=== PATIENT | female | born 1950 | race Caucasian/White ===

== ENCOUNTER 2021-02-03 12:21 | Inpatient (IN) ==
[2021-02-03 12:54] LABS: Basophils # (auto) 0.03 K/uL (0-0.2); Basophils % (auto) 0.4 %; Eosinophils # (auto) 0.03 K/uL (0-0.5); Eosinophils % (auto) 0.4 %; Hematocrit (blood only) 37.1 % (37-47); Hemoglobin 13.1 g/dL (12.0-16.0); Immature Granulocytes # (auto) 0.01 K/uL (0.00-0.02); Immature Granulocytes % (auto) 0.1 %; Lymphocytes # (auto) 1.64 K/uL (1.2-3.4); Lymphocytes % (auto) 20.6 %; Mean Corpuscular Hemoglobin 30.3 pg (25-34); Mean Corpuscular Hgb Conc 35.3 g/dL (32-36); Mean Corpuscular Volume 85.9 fL (80-100); Mean Platelet Volume 10.4 fL (7.4-10.4); Monocytes # (auto) 0.74 K/uL (0.11-0.59); Monocytes % (auto) 9.3 %; Neutrophils # (auto) 5.51 K/uL (1.4-6.5); Neutrophils % (auto) 69.2 %; Platelet Count 327 K/uL (130-400); RDW Standard Deviation 52.9 fL (36.4-46.3); Red Blood Count 4.32 M/uL (4.2-5.4); White Blood Count 7.96 K/uL (4.8-10.8)
[2021-02-03 13:08] LABS: INR 1.5 (0.9-1.1); Partial Thromboplastin Ratio 1.3; Prothrombin Time 14.7 Seconds (9.0-12.0)
--- NOTE | 2021-02-03 13:22 | XRay Report ---
XR chest 1V portable HISTORY: 71 years-old Female Chest Pain acute atypical chest pain COMPARISON: None TECHNIQUE: Portable AP view of the chest FINDINGS: Cardiomediastinal and hilar silhouettes are within normal limits. No pneumothorax, pleural effusion, airspace consolidation or overt pulmonary edema. Mild asymmetric interstitial opacities of the latera l left midlung and left lung base. Bones appear grossly intact. IMPRESSION: Subtle interstitial opacities of the lateral left midlung and left lung base suggest atel ectasis versus summation density. A mild nonspecific pneumonitis is considered less likely. ACT 112: Negative or not required by law. The above report was generated using voice recognition software. It may contain grammatical, syntax o r spelling errors. Electronically signed by: Maged Joaquin M.D. 02/03/2021 1:21 PM
[2021-02-03 13:40] LABS: Alanine Aminotransferase 92 U/L (12-78); Albumin Level 2.9 gm/dl (3.4-5.0); Alkaline Phosphatase 252 U/L (45-117); Aspartate Aminotransferase 97 U/L (15-37); Bilirubin,Total 32.6 mg/dl (0.2-1); Blood Urea Nitrogen 17 mg/dl (7-18); Calcium 9.5 mg/dl (8.5-10.1); Carbon Dioxide 19 mmol/L (21-32); Chloride 100 mmol/L (98-107); Creatine Kinase 117 U/L (26-192); Glucose 77 mg/dl (70-99); Lipase 98 U/L (73-393); Phosphorus 2.9 mg/dl (2.5-4.9); Potassium 3.7 mmol/L (3.5-5.1); Sodium 133 mmol/L (136-145); Thyroid Stimulating Hormone 0.422 uIu/ml (0.300-4.500); Troponin I < 0.015 ng/ml (0-0.045)
[2021-02-03 13:48] LABS: Bilirubin Direct 27.4 mg/dl (0-0.2)
[2021-02-03 14:39] LABS: Procalcitonin 0.28 ng/ml (0-0.5)
[2021-02-03 14:45] LABS: Lyme Ab IgM w/WB Rflx Negative (Negative)
[2021-02-03 14:48] LABS: Lyme Ab IgG w/WB Rflx Positive (Negative)
[2021-02-03] MEDS ORDERED: OPTIRAY 320 125ml IV ONE (15:04)
--- NOTE | 2021-02-03 15:19 | CT Scan Report ---
CT angio chest PE protocol CT DOSE: 562.21 mGy.cm HISTORY: 71 years-old Female with sob, painless jaundice PE. Acute shortness of breath with jaundic e TECHNIQUE: Multiple CTA images of the chest were obtained after the intravenous administration of 120 ml Optiray. Coronal and sagittal MIPS were obtained from the axial data set and were submitted for review. All measurements were obtained according to NASCET criteria. A dose lowering technique was u tilized adhering to the principles of ALARA. COMPARISON: CT abdomen and pelvis of same day FINDINGS: CTA: The heart is upper limits of normal in size. No pericardial effusion. No thoracic aortic aneurysm or dissection. Patency of the imaged great vessels. Descending thoracic aortic tortuosity. The pulmonary arterial tree is opacified to the level of the segmental branches and demonstrates no filling defect s to suggest thromboembolic disease. CT CHEST: Unremarkable thyroid. No adenopathy. There is no pneumothorax, pleural effusion, airspace consolidati on or overt pulmonary edema. Subsegmental bibasilar atelectasis. There are no suspicious pulmonary no dules or masses. Minimal mucus plugging of the right lung apex. Central airways are patent. Partially imaged intrahepatic biliary ductal dilation. No pneumoperitoneum. Unremarkable soft tissues . No acute fracture or suspicious bone lesion. Degenerative changes of the shoulders and spine. IMPRESSION: 1. No acute intrathoracic abnormality. No pulmonary emboli. 2. Please refer to the CT abdomen and pelvis study of same day for discussion of the biliary ductal d ilation. ACT 112: Negative or not required by law. The above report was generated using voice recognition software. It may contain grammatical, syntax o r spelling errors. Electronically signed by: Maged Joaquin M.D. 02/03/2021 3:18 PM
--- NOTE | 2021-02-03 15:25 | CT Scan Report ---
CT SCAN OF THE ABDOMEN AND PELVIS WITH IV CONTRAST CLINICAL HISTORY: Painless jaundice. COMPARISON STUDY: No priors. TECHNIQUE: Following the IV administration of 120 cc of Optiray 320, CT scan of the abdomen and pelv is is performed from the lung bases to the proximal femora. Images are reviewed in the axial, sagitta l, and coronal planes. IV contrast was administered without complication. A dose lowering technique w as utilized adhering to the principles of ALARA. FINDINGS: Lung bases: The heart is normal in size and without pericardial effusion. The lung bases are clear no ting bibasilar scarring/atelectasis. Liver: The contrast-enhanced liver is normal in size, contour, and attenuation. Hepatic and portal ve ins are patent. There is moderate to severe intrahepatic biliary ductal dilatation. There is focal cu toff of the dilated bile ducts at the hepatic hilum with the suggestion of an infiltrative mass lesio n at the hilum on image #92. This measures approximately 2.5 cm. A portion of this likely involves th e extrahepatic bile ducts as seen on image #99. Gallbladder: The gallbladder is distended but otherwise normal in appearance. The common bile duct is normal in caliber. Spleen: Normal in size and attenuation. Pancreas: Moderately atrophic and grossly unremarkable. The pancreatic duct is normal in caliber. Adrenal glands: Unremarkable. Kidneys: The contrast enhanced kidneys demonstrate cortical atrophy and are without hydronephrosis. T he kidneys enhance symmetrically. A 1.4 cm cyst is noted in the interpolar right kidney. Abdominal vasculature: The abdominal aorta is normal in course and caliber. Bowel: There is mild fecal retention seen throughout the colon. No bowel obstruction is identified. T he appendix is well-visualized and normal. Peritoneum: There is no intraperitoneal free air or abdominal ascites. There is a small fat-containin g umbilical hernia. Lymphadenopathy: None. Pelvic viscera: The bladder, uterus, and adnexa are normal as visualized. Skeletal structures: The skeletal structures are osteopenic. There is mild lumbosacral spondylosis. N o lytic or blastic lesions are seen. IMPRESSION: 1. There is moderate to severe intrahepatic biliary ductal dilatation with the suggestion of a subtle infiltrative underlying and obstructing mass lesion at the hepatic hilum. This may also involve the extrahepatic bile ducts. 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 GI follow-up is r ecommended. 2. The gallbladder is significantly distended but otherwise normal in appearance. This suggests concu rrent obstruction of the cystic duct. 3. The common bile duct in the pancreatic duct are normal in caliber. 4. There is no evidence of distant metastatic disease throughout the abdomen or pelvis. 5. Additional findings as above. ACT 112: Negative or not required by law. Electronically signed by: Sd Elam M.D. 02/03/2021 3:24 PM
[2021-02-03 15:38] LABS: Appearance Urine Clear (Clear); Bacteria Urine Automated Negative (Negative); Blood Urine Negative (Negative); Color Urine Dark Yellow; Glucose Urine UA Negative (Negative); Ketones Urine 1+ (Negative); Leukocyte Esterase Urine 1+ (Negative); Nitrite Urine Negative (Negative); Protein Urine Negative (Negative); Specific Gravity Urine 1.021 (1.000-1.030); Urobilinogen Urine Negative (Negative)
[2021-02-03 15:47] LABS: Bilirubin Urine 3+ (Negative)
--- NOTE | 2021-02-03 15:56 | Emergency Department Note ---
Impression & Plan Painless jaundice, Gallbladder mass, Borderline results on serologic testing for Lyme disease ED Provider Note NAME: PERCY YEH AGE: 71 SEX: F ARRIVES VIA: Walk-In INFORMANT: Patient, ED PROVIDER(S): Beau Joshi MD CHIEF COMPLAINT: palpitations, jaundice. PLAN: Disposition: Admit MEDICAL DECISION MAKING: The patient is a pleasant 71-year-old woman who denies any past medical history or active medical problems who presents to the emergency department for evaluation of palpitations and evolving jaundice over the past 2 weeks which reports she first noted when she was in [place] on vacation with her family but did not seek medical attention because she did not want to ruin her vacation but finally was convinced by family to come to emergency department for evaluation. She has any fevers, chills, nausea, vomiting, cough, congestion, abdominal pain, diarrhea or constipation, urinary symptoms. On arrival patient is fatigued appearing but no acute distress, afebrile, HR 100s and otherwise stable vital signs. She has severe jaundice and scleral icterus. Her abdomen is benign. WBC, H/H and platelets within normal limits. INR is elevated at 1.5. Chemistry with bicarb of 19 and anion gap of 14 however lactate 1.1, within normal limits. Electrolytes without significant abnormality. LFTs are significantly elevated with total bilirubin 32.6 and direct bilirubin 27.4 with AST and ALT 97 and 92, respectively. Alk phos is 252. CPK within normal limits. Troponin negative/undetectable. Lipase within normal limits. Procalcitonin is not elevated. TSH within normal limits. UA without convincing evidence of infection. Lyme screen was positive which is of unclear significance though the patient does report she has cats that they have found ticks on before. Will defer decision for treatment to admitting team. 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 Case was discussed with GI on-call TABATHA Hoffman with Dr. Becki Jiménez GI on-call. Upon her evaluation at the bedside they agreed to take the patient to the endoscopy suite today for ERCP and likely stenting. Case was discussed with Jessy Vicente with Jessy Abel hospitalist. Patient agrees with plan for admission. Triage Nursing notes reviewed and agree them. Prior medical records reviewed Vital Signs: reviewed and remarkable for tachycardia. Differential diagnosis: Premature contractions, electrolyte abnormality, cardiac dysrhythmia, thyroid dysfunction, pulmonary embolism, infection, gastrointestinal, as well as other pathologies. ER treatment provided: See below. Diagnostics interpreted by me: ECG: Sinus tachycardia, 102 bpm, no ectopy, no overt ST elevation or depr ession, QTC 432, QRS 82. Cardiac Monitoring: An order for continuous cardiac monitoring was placed and demonstrated sinus tachycardia, 102 bpm, no ectopy. Laboratory studies: See below Imaging studies: See below Consultations: GI on-call TABATHA Carrington with Dr. Connell. Jessy Vicente with Dr. Kuo, Jessy hospitalist. HPI: The patient is a pleasant 71-year-old woman who denies any past medical history or active medical problems who presents to the emergency department for evaluation of palpitations and evolving jaundice over the past 2 weeks which reports she first noted when she was in [place] on vacation with her family but did not seek medical attention because she did not want to ruin her vacation but finally was convinced by family to come to emergency department for evaluation. She has any fevers, chills, nausea, vomiting, cough, congestion, abdominal pain, diarrhea or constipation, urinary symptoms. ROS: See above HPI for pertinent positives & negatives. A total of 10 systems reviewed and were otherwise negative. PAST MEDICAL HISTORY:See Below PAST SURGICAL HISTORY:See Below FAMILY HISTORY:See Below SOCIAL HISTORY:See Below HOME MEDICATIONS:See Below ALLERGIES:See Below VITALS:See Below PHYSICAL EXAMINATION: GENERAL: Awake, alert, fatigued-appearing, in no distress HENT: Normocephalic, atraumatic. Oropharynx with dry mucous membranes and otherwise unremarkable. EYES: Normal conjunctiva. Sclera severely icteric. NECK: Supple. No nuchal rigidity. FROM. No JVD. RESPIRATORY: Clear to auscultation. CARDIAC: Tachycardic rate, normal rhythm. Extremities warm and well perfused. Pulses equal. ABDOMEN: Soft, non-distended. No tenderness to palpation. No rebound or guarding. No masses. RECTAL: Deferred. MUSCULOSKELETAL: Chest examination reveals no tenderness. The back is s ymmetrical on inspection without obvious abnormality. There is no CVA tenderness to palpation. No joint edema. LOWER EXTREMITIES: Calves are equal size bilaterally and non-tender. No edema. No discoloration. NEURO: Normal sensorium. No sensory or motor deficits noted. SKIN: Severe jaundice noted. ED COURSE: Critical Care: I have personally spent greater than 35 minutes of critical care time in the direct management of this patient. This includes bedside care, interpretation of diagnostic studies, and testing, discussion with consultants, patient, and family members, and other required patient management activities. This 35 minutes is in excess of all separately billable procedures. Beau Joshi MD Past Med/Surg History Medical History Borderline results on serologic testing for Lyme disease No pertinent past medical history Painless jaundice Surgical History No pertinent past surgical history Family History Father Cancer Mother Cancer Social History Smoking Status: Never smoker Do You Dip or Chew Tobacco: No; Hx Alcohol Use: No Hx Substance Use: No Preferred Language: Urdu Communication Ability: Effective Classification Clerk Required: No Beliefs That Will Affect Care: None Current Living Situation: Spouse Other Information That Helps Us Care for You: No Feels Safe at Home: Yes Safety Concerns: Feels Safe At This Time Assistive Devices: None Allergies Allergies Allergy/AdvReac Type Severity Reaction Status Date / Time No Known Allergies Allergy Verified 02/03/21 16:43 Home Meds Home Medications Medication Instructions Recorded Confirmed No Known Home Medications 02/03/21 02/03/21 Results & Data (ED) Vital Signs Vital Signs - 24 hr 02/03/21 12:27 02/03/21 12:40 02/03/21 12:50 Temperature 37.0 C Temperature Source Oral Pulse Rate 99 H Pulse Rate from SpO2 Sensor 100 H Respiratory Rate 15 Respiratory Effort / Characteristics Non-Labored Non-Labored Spontaneous Normal for Patient Respiratory Depth Normal Normal Respiratory Pattern Regular Blood Pressure 172/119 H Blood Pressure Mean 136 Pulse Oximetry 97 98 97 Oxygen Delivery Method Room Air Room Air Room Air Sepsis Recent Fever Within 48 Hours No Sepsis New/Unexplained Change in Mental Status N/A Sepsis Action Taken by Nursing No Action Required 02/03/21 13:11 02/03/21 13:30 02/03/21 14:00 Temperature Temperature Source Pulse Rate 88 90 90 Pulse Rate from SpO2 Sensor 88 90 90 Respiratory Rate 16 17 17 Respiratory Effort / Characteristics Respiratory Depth Respiratory Pattern Blood Pressure 153/78 H 153/79 H 143/79 H Blood Pressure Mean 103 103 100 Pulse Oximetry 98 96 96 Oxygen Delivery Method Sepsis Recent Fever Within 48 Hours Sepsis New/Unexplained Change in Mental Status Sepsis Action Taken by Nursing 02/03/21 14:30 02/03/21 15:12 02/03/21 15:30 Temperature Temperature Source Pulse Rate 79 88 80 Pulse Rate from SpO2 Sensor 81 87 81 Respiratory Rate 16 23 21 Respiratory Effort / Characteristics Respiratory Depth Respiratory Pattern Blood Pressure 152/72 H Blood Pressure Mean 98 Pulse Oximetry 96 97 97 Oxygen Delivery Method Sepsis Recent Fever Within 48 Hours Sepsis New/Unexplained Change in Mental Status Sepsis Action Taken by Nursing 02/03/21 16:00 02/03/21 16:30 02/03/21 17:00 Temperature Temperature Source Pulse Rate 84 87 87 Pulse Rate from SpO2 Sensor 81 89 89 Respiratory Rate 21 16 16 Respiratory Effort / Characteristics Respiratory Depth Respiratory Pattern Blood Pressure 148/73 H 159/84 H 159/84 H Blood Pressure Mean 98 109 109 Pulse Oximetry 97 96 96 Oxygen Delivery Method Sepsis Recent Fever Within 48 Hours Sepsis New/Unexplained Change in Mental Status Sepsis Action Taken by Nursing 02/03/21 17:30 Temperature 37 C Temperature Source Oral Pulse Rate 87 Pulse Rate from SpO2 Sensor Respiratory Rate 16 Respiratory Effort / Characteristics Respiratory Depth Respiratory Pattern Blood Pressure 159/84 H Blood Pressure Mean Pulse Oximetry 96 Oxygen Delivery Method Room Air Sepsis Recent Fever Within 48 Hours Sepsis New/Unexplained Change in Mental Status Sepsis Action Taken by Nursing Laboratory Data Attestation: I reviewed the patient's lab results. Result diagrams: 02/03/21 12:45 02/03/21 12:45 Lab Results 02/03/21 02/03/21 02/03/21 Range/Units 12:45 12:45 12:45 WBC 7.96 (4.8-10.8) K/uL RBC 4.32 (4.2-5.4) M/uL Hgb 13.1 (12.0-16.0) g/dL POC Hgb (12.0-16.0) g/dl Hct 37.1 (37-47) % POC Hct (37-47) % MCV 85.9 (80-100) fL MCH 30.3 (25-34) pg MCHC 35.3 (32-36) g/dL RDW Std Deviation 52.9 H (36.4-46.3) fL RDW Coeff of Miles 17.0 H (11.5-14.5) % Plt Count 327 (130-400) K/uL MPV 10.4 (7.4-10.4) fL Immature Gran % (Auto) 0.1 % Neut % (Auto) 69.2 % Lymph % (Auto) 20.6 % [place] % (Auto) 9.3 % Eos % (Auto) 0.4 % Baso % (Auto) 0.4 % Neut # (Auto) 5.51 (1.4-6.5) K/uL Lymph # (Auto) 1.64 (1.2-3.4) K/uL [place] # (Auto) 0.74 H (0.11-0.59) K/uL Eos # (Auto) 0.03 (0-0.5) K/uL Baso # (Auto) 0.03 (0-0.2) K/uL Immature Gran # (Auto) 0.01 (0.00-0.02) K/uL PT 14.7 H (9.0-12.0) Seconds INR 1.5 H (0.9-1.1) APTT 33.0 H (21.0-31.0) Seconds PTT Ratio 1.3 POC Sodium (135-144) mmol/L Sodium 133 L (136-145) mmol/L POC Potassium (3.3-5.0) mmol/L Potassium 3.7 (3.5-5.1) mmol/L POC Chloride (101-112) mmol/L Chloride 100 (98-107) mmol/L Carbon Dioxide 19 L (21-32) mmol/L POC Total CO2 (24-31) mmol/L Anion Gap 14.0 H (3-11) POC Anion Gap (16-25) mmol/L POC BUN (7-18) mg/dl BUN 17 (7-18) mg/dl Creatinine (0.6-1.2) mg/dl POC Creatinine (0.6-1.3) mg/dl Est Cr Clr Drug Dosing ml/min Est GFR ( Amer) Not Reportable Est GFR (Non-Af Amer) Not Reportable BUN/Creatinine Ratio Not Reportable Glucose 77 (70-99) mg/dl POC Glucose (other) (70-99) mg/dl Lactate (0.4-2.0) mmol/L Calcium 9.5 (8.5-10.1) mg/dl POC Ioniz Calcium Su (1.12-1.32) mmol/l Phosphorus 2.9 (2.5-4.9) mg/dl Magnesium 2.0 (1.8-2.4) mg/dl Total Bilirubin 32.6 H (0.2-1) mg/dl Direct Bilirubin 27.4 H (0-0.2) mg/dl AST 97 H (15-37) U/L ALT 92 H (12-78) U/L Alkaline Phosphatase 252 H (45-117) U/L Ammonia (11-32) umol/L Total Creatine Kinase 117 (26-192) U/L Troponin I < 0.015 (0-0.045) ng/ml Total Protein (6.4-8.2) gm/dl Albumin 2.9 L (3.4-5.0) gm/dl Globulin (2.5-4.0) gm/dl Albumin/Globulin Ratio (0.9-2) Lipase 98 (73-393) U/L Procalcitonin (0-0.5) ng/ml TSH 0.422 (0.300-4.500) uIu/ml Urine Color Urine Appearance (Clear) Urine pH (4.5-7.5) Ur Specific [place] (1.000-1.030) Urine Protein (Negative) Urine Glucose (UA) (Negative) Urine Ketones (Negative) Urine Blood (Negative) Urine Nitrite (Negative) Urine Bilirubin (Negative) Urine Urobilinogen (Negative) Ur Leukocyte Esterase (Negative) Urine WBC (Auto) (0-5) /hpf Urine RBC (Auto) (0-4) /hpf U Hyaline Cast (Auto) (0-5) /lpf U Epithel Cells (Auto) (0-5) /lpf Urine Bacteria (Auto) (Negative) Granular Casts (0) /lpf Urine Yeast Ethyl Alcohol mg/dL (0-3) mg/dl Anaplasma Smear Lyme Disease IgG Ab (Negative) Lyme Disease IgM Ab (Negative) COVID-19 Eval Order SARS-CoV-2 (PCR) (Negative) Hep Bs Antigen (Neg) Hepatitis C Antibody (Neg) 02/03/21 02/03/21 02/03/21 Range/Units 12:45 12:45 12:56 WBC (4.8-10.8) K/uL RBC (4.2-5.4) M/uL Hgb (12.0-16.0) g/dL POC Hgb (12.0-16.0) g/dl Hct (37-47) % POC Hct (37-47) % MCV (80-100) fL MCH (25-34) pg MCHC (32-36) g/dL RDW Std Deviation (36.4-46.3) fL RDW Coeff of Miles (11.5-14.5) % Plt Count (130-400) K/uL MPV (7.4-10.4) fL Immature Gran % (Auto) % Neut % (Auto) % Lymph % (Auto) % [place] % (Auto) % Eos % (Auto) % Baso % (Auto) % Neut # (Auto) (1.4-6.5) K/uL Lymph # (Auto) (1.2-3.4) K/uL [place] # (Auto) (0.11-0.59) K/uL Eos # (Auto) (0-0.5) K/uL Baso # (Auto) (0-0.2) K/uL Immature Gran # (Auto) (0.00-0.02) K/uL PT (9.0-12.0) Seconds INR (0.9-1.1) APTT (21.0-31.0) Seconds PTT Ratio POC Sodium (135-144) mmol/L Sodium (136-145) mmol/L POC Potassium (3.3-5.0) mmol/L Potassium (3.5-5.1) mmol/L POC Chloride (101-112) mmol/L Chloride (98-107) mmol/L Carbon Dioxide (21-32) mmol/L POC Total CO2 (24-31) mmol/L Anion Gap (3-11) POC Anion Gap (16-25) mmol/L POC BUN (7-18) mg/dl BUN (7-18) mg/dl Creatinine (0.6-1.2) mg/dl POC Creatinine (0.6-1.3) mg/dl Est Cr Clr Drug Dosing ml/min Est GFR ( Amer) Est GFR (Non-Af Amer) BUN/Creatinine Ratio Glucose (70-99) mg/dl POC Glucose (other) (70-99) mg/dl Lactate (0.4-2.0) mmol/L Calcium (8.5-10.1) mg/dl POC Ioniz Calcium Su (1.12-1.32) mmol/l Phosphorus (2.5-4.9) mg/dl Magnesium (1.8-2.4) mg/dl Total Bilirubin (0.2-1) mg/dl Direct Bilirubin (0-0.2) mg/dl AST (15-37) U/L ALT (12-78) U/L Alkaline Phosphatase (45-117) U/L Ammonia < 10.0 L (11-32) umol/L Total Creatine Kinase (26-192) U/L Troponin I (0-0.045) ng/ml Total Protein (6.4-8.2) gm/dl Albumin (3.4-5.0) gm/dl Globulin (2.5-4.0) gm/dl Albumin/Globulin Ratio (0.9-2) Lipase (73-393) U/L Procalcitonin (0-0.5) ng/ml TSH (0.300-4.500) uIu/ml Urine Color Urine Appearance (Clear) Urine pH (4.5-7.5) Ur Specific [place] (1.000-1.030) Urine Protein (Negative) Urine Glucose (UA) (Negative) Urine Ketones (Negative) Urine Blood (Negative) Urine Nitrite (Negative) Urine Bilirubin (Negative) Urine Urobilinogen (Negative) Ur Leukocyte Esterase (Negative) Urine WBC (Auto) (0-5) /hpf Urine RBC (Auto) (0-4) /hpf U Hyaline Cast (Auto) (0-5) /lpf U Epithel Cells (Auto) (0-5) /lpf Urine Bacteria (Auto) (Negative) Granular Casts (0) /lpf Urine Yeast Ethyl Alcohol mg/dL < 3.0 (0-3) mg/dl Anaplasma Smear Lyme Disease IgG Ab (Negative) Lyme Disease IgM Ab (Negative) COVID-19 Eval Order SARS-CoV-2 (PCR) (Negative) Hep Bs Antigen (Neg) Hepatitis C Antibody (Neg) 02/03/21 02/03/21 02/03/21 Range/Units 13:01 13:58 13:59 WBC (4.8-10.8) K/uL RBC (4.2-5.4) M/uL Hgb (12.0-16.0) g/dL POC Hgb (12.0-16.0) g/dl Hct (37-47) % POC Hct (37-47) % MCV (80-100) fL MCH (25-34) pg MCHC (32-36) g/dL RDW Std Deviation (36.4-46.3) fL RDW Coeff of Miles (11.5-14.5) % Plt Count (130-400) K/uL MPV (7.4-10.4) fL Immature Gran % (Auto) % Neut % (Auto) % Lymph % (Auto) % [place] % (Auto) % Eos % (Auto) % Baso % (Auto) % Neut # (Auto) (1.4-6.5) K/uL Lymph # (Auto) (1.2-3.4) K/uL [place] # (Auto) (0.11-0.59) K/uL Eos # (Auto) (0-0.5) K/uL Baso # (Auto) (0-0.2) K/uL Immature Gran # (Auto) (0.00-0.02) K/uL PT (9.0-12.0) Seconds INR (0.9-1.1) APTT (21.0-31.0) Seconds PTT Ratio POC Sodium (135-144) mmol/L Sodium (136-145) mmol/L POC Potassium (3.3-5.0) mmol/L Potassium (3.5-5.1) mmol/L POC Chloride (101-112) mmol/L Chloride (98-107) mmol/L Carbon Dioxide (21-32) mmol/L POC Total CO2 (24-31) mmol/L Anion Gap (3-11) POC Anion Gap (16-25) mmol/L POC BUN (7-18) mg/dl BUN (7-18) mg/dl Creatinine (0.6-1.2) mg/dl POC Creatinine (0.6-1.3) mg/dl Est Cr Clr Drug Dosing ml/min Est GFR ( Amer) Est GFR (Non-Af Amer) BUN/Creatinine Ratio Glucose (70-99) mg/dl POC Glucose (other) (70-99) mg/dl Lactate 1.1 (0.4-2.0) mmol/L Calcium (8.5-10.1) mg/dl POC Ioniz Calcium Su (1.12-1.32) mmol/l Phosphorus (2.5-4.9) mg/dl Magnesium (1.8-2.4) mg/dl Total Bilirubin (0.2-1) mg/dl Direct Bilirubin (0-0.2) mg/dl AST (15-37) U/L ALT (12-78) U/L Alkaline Phosphatase (45-117) U/L Ammonia (11-32) umol/L Total Creatine Kinase (26-192) U/L Troponin I (0-0.045) ng/ml Total Protein (6.4-8.2) gm/dl Albumin (3.4-5.0) gm/dl Globulin (2.5-4.0) gm/dl Albumin/Globulin Ratio (0.9-2) Lipase (73-393) U/L Procalcitonin 0.28 (0-0.5) ng/ml TSH (0.300-4.500) uIu/ml Urine Color Urine Appearance (Clear) Urine pH (4.5-7.5) Ur Specific [place] (1.000-1.030) Urine Protein (Negative) Urine Glucose (UA) (Negative) Urine Ketones (Negative) Urine Blood (Negative) Urine Nitrite (Negative) Urine Bilirubin (Negative) Urine Urobilinogen (Negative) Ur Leukocyte Esterase (Negative) Urine WBC (Auto) (0-5) /hpf Urine RBC (Auto) (0-4) /hpf U Hyaline Cast (Auto) (0-5) /lpf U Epithel Cells (Auto) (0-5) /lpf Urine Bacteria (Auto) (Negative) Granular Casts (0) /lpf Urine Yeast Ethyl Alcohol mg/dL (0-3) mg/dl Anaplasma Smear See Comment Lyme Disease IgG Ab Positive A (Negative) Lyme Disease IgM Ab Negative (Negative) COVID-19 Eval Order SARS-CoV-2 (PCR) (Negative) Hep Bs Antigen (Neg) Hepatitis C Antibody (Neg) 02/03/21 02/03/21 02/03/21 Range/Units 14:30 15:12 16:24 WBC (4.8-10.8) K/uL RBC (4.2-5.4) M/uL Hgb (12.0-16.0) g/dL POC Hgb 13.3 (12.0-16.0) g/dl Hct (37-47) % POC Hct 39 (37-47) % MCV (80-100) fL MCH (25-34) pg MCHC (32-36) g/dL RDW Std Deviation (36.4-46.3) fL RDW Coeff of Miles (11.5-14.5) % Plt Count (130-400) K/uL MPV (7.4-10.4) fL Immature Gran % (Auto) % Neut % (Auto) % Lymph % (Auto) % [place] % (Auto) % Eos % (Auto) % Baso % (Auto) % Neut # (Auto) (1.4-6.5) K/uL Lymph # (Auto) (1.2-3.4) K/uL [place] # (Auto) (0.11-0.59) K/uL Eos # (Auto) (0-0.5) K/uL Baso # (Auto) (0-0.2) K/uL Immature Gran # (Auto) (0.00-0.02) K/uL PT (9.0-12.0) Seconds INR (0.9-1.1) APTT (21.0-31.0) Seconds PTT Ratio POC Sodium 135 (135-144) mmol/L Sodium (136-145) mmol/L POC Potassium 4.4 (3.3-5.0) mmol/L Potassium (3.5-5.1) mmol/L POC Chloride 102 (101-112) mmol/L Chloride (98-107) mmol/L Carbon Dioxide (21-32) mmol/L POC Total CO2 21 L (24-31) mmol/L Anion Gap (3-11) POC Anion Gap 17.0 (16-25) mmol/L POC BUN 20 H (7-18) mg/dl BUN (7-18) mg/dl Creatinine (0.6-1.2) mg/dl POC Creatinine 0.8 (0.6-1.3) mg/dl Est Cr Clr Drug Dosing ml/min Est GFR ( Amer) Est GFR (Non-Af Amer) BUN/Creatinine Ratio Glucose (70-99) mg/dl POC Glucose (other) 71 (70-99) mg/dl Lactate (0.4-2.0) mmol/L Calcium (8.5-10.1) mg/dl POC Ioniz Calcium Su 1.05 L (1.12-1.32) mmol/l Phosphorus (2.5-4.9) mg/dl Magnesium (1.8-2.4) mg/dl Total Bilirubin (0.2-1) mg/dl Direct Bilirubin (0-0.2) mg/dl AST (15-37) U/L ALT (12-78) U/L Alkaline Phosphatase (45-117) U/L Ammonia (11-32) umol/L Total Creatine Kinase (26-192) U/L Troponin I (0-0.045) ng/ml Total Protein (6.4-8.2) gm/dl Albumin (3.4-5.0) gm/dl Globulin (2.5-4.0) gm/dl Albumin/Globulin Ratio (0.9-2) Lipase (73-393) U/L Procalcitonin (0-0.5) ng/ml TSH (0.300-4.500) uIu/ml Urine Color Dark Yellow Urine Appearance Clear (Clear) Urine pH 6.0 (4.5-7.5) Ur Specific [place] 1.021 (1.000-1.030) Urine Protein Negative (Negative) Urine Glucose (UA) Negative (Negative) Urine Ketones 1+ H (Negative) Urine Blood Negative (Negative) Urine Nitrite Negative (Negative) Urine Bilirubin 3+ H (Negative) Urine Urobilinogen Negative (Negative) Ur Leukocyte Esterase 1+ H (Negative) Urine WBC (Auto) 5-10 H (0-5) /hpf Urine RBC (Auto) 5-10 H (0-4) /hpf U Hyaline Cast (Auto) 5-10 H (0-5) /lpf U Epithel Cells (Auto) 10-20 H (0-5) /lpf Urine Bacteria (Auto) Negative (Negative) Granular Casts 1-5 H (0) /lpf Urine Yeast Not Reportable Ethyl Alcohol mg/dL (0-3) mg/dl Anaplasma Smear Lyme Disease IgG Ab (Negative) Lyme Disease IgM Ab (Negative) COVID-19 Eval Order Covid19 at [facility] SARS-CoV-2 (PCR) (Negative) Hep Bs Antigen (Neg) Hepatitis C Antibody (Neg) 02/03/21 Range/Units 16:24 WBC (4.8-10.8) K/uL RBC (4.2-5.4) M/uL Hgb (12.0-16.0) g/dL POC Hgb (12.0-16.0) g/dl Hct (37-47) % POC Hct (37-47) % MCV (80-100) fL MCH (25-34) pg MCHC (32-36) g/dL RDW Std Deviation (36.4-46.3) fL RDW Coeff of Miles (11.5-14.5) % Plt Count (130-400) K/uL MPV (7.4-10.4) fL Immature Gran % (Auto) % Neut % (Auto) % Lymph % (Auto) % [place] % (Auto) % Eos % (Auto) % Baso % (Auto) % Neut # (Auto) (1.4-6.5) K/uL Lymph # (Auto) (1.2-3.4) K/uL [place] # (Auto) (0.11-0.59) K/uL Eos # (Auto) (0-0.5) K/uL Baso # (Auto) (0-0.2) K/uL Immature Gran # (Auto) (0.00-0.02) K/uL PT (9.0-12.0) Seconds INR (0.9-1.1) APTT (21.0-31.0) Seconds PTT Ratio POC Sodium (135-144) mmol/L Sodium (136-145) mmol/L POC Potassium (3.3-5.0) mmol/L Potassium (3.5-5.1) mmol/L POC Chloride (101-112) mmol/L Chloride (98-107) mmol/L Carbon Dioxide (21-32) mmol/L POC Total CO2 (24-31) mmol/L Anion Gap (3-11) POC Anion Gap (16-25) mmol/L POC BUN (7-18) mg/dl BUN (7-18) mg/dl Creatinine (0.6-1.2) mg/dl POC Creatinine (0.6-1.3) mg/dl Est Cr Clr Drug Dosing ml/min Est GFR ( Amer) Est GFR (Non-Af Amer) BUN/Creatinine Ratio Glucose (70-99) mg/dl POC Glucose (other) (70-99) mg/dl Lactate (0.4-2.0) mmol/L Calcium (8.5-10.1) mg/dl POC Ioniz Calcium Su (1.12-1.32) mmol/l Phosphorus (2.5-4.9) mg/dl Magnesium (1.8-2.4) mg/dl Total Bilirubin (0.2-1) mg/dl Direct Bilirubin (0-0.2) mg/dl AST (15-37) U/L ALT (12-78) U/L Alkaline Phosphatase (45-117) U/L Ammonia (11-32) umol/L Total Creatine Kinase (26-192) U/L Troponin I (0-0.045) ng/ml Total Protein (6.4-8.2) gm/dl Albumin (3.4-5.0) gm/dl Globulin (2.5-4.0) gm/dl Albumin/Globulin Ratio (0.9-2) Lipase (73-393) U/L Procalcitonin (0-0.5) ng/ml TSH (0.300-4.500) uIu/ml Urine Color Urine Appearance (Clear) Urine pH (4.5-7.5) Ur Specific [place] (1.000-1.030) Urine Protein (Negative) Urine Glucose (UA) (Negative) Urine Ketones (Negative) Urine Blood (Negative) Urine Nitrite (Negative) Urine Bilirubin (Negative) Urine Urobilinogen (Negative) Ur Leukocyte Esterase (Negative) Urine WBC (Auto) (0-5) /hpf Urine RBC (Auto) (0-4) /hpf U Hyaline Cast (Auto) (0-5) /lpf U Epithel Cells (Auto) (0-5) /lpf Urine Bacteria (Auto) (Negative) Granular Casts (0) /lpf Urine Yeast Ethyl Alcohol mg/dL (0-3) mg/dl Anaplasma Smear Lyme Disease IgG Ab (Negative) Lyme Disease IgM Ab (Negative) COVID-19 Eval Order SARS-CoV-2 (PCR) NEGATIVE (Negative) Hep Bs Antigen (Neg) Hepatitis C Antibody (Neg) Administered Medications Lactated Ringer's (Lr) 1,000 mls @ 100 mls/hr IV .Q10H ONE Stop: 02/04/21 08:49 Last Admin: 02/03/21 23:19 Dose: 100 mls/hr Documented by: [id number] Discontinued Medications Lactated Ringer's (Lr) 1,000 mls @ 100 mls/hr IV .Q10H DARRELL Stop: 03/05/21 20:44 Last Infusion: 02/03/21 23:17 Dose: 0 mls/hr Documented by: [id number] Admin: 02/03/21 20:57 Dose: 100 mls/hr Documented by: [id number] Piperacillin Sod/Tazobactam (Sod 3.375 gm/ Dextrose) 115 mls @ 230 mls/hr IV NOW ONE; Protocol Stop: 02/03/21 21:29 Last Infusion: 02/03/21 22:36 Dose: 0 mls/hr Documented by: [id number] Admin: 02/03/21 22:00 Dose: 230 mls/hr Documented by: [id number] Indomethacin (Indomethacin 50 Mg Supp) 100 mg [place] ONE ONE Stop: 02/03/21 16:23 Last Admin: 02/03/21 19:30 Dose: 100 mg Documented by: [id number] Ioversol (Optiray 320 125ml) 120 ml IV ONCE ONE Stop: 02/03/21 15:05 Last Admin: 02/03/21 15:04 Dose: 120 ml Documented by: [id number] Imaging Data Radiologist's Impression: Chest X-Ray 02/03/21 12:36 XR chest 1V portable HISTORY: 71 years-old Female Chest Pain acute atypical chest pain COMPARISON: None TECHNIQUE: Portable AP view of the chest FINDINGS: Cardiomediastinal and hilar silhouettes are within normal limits. No pneumothorax, pleural effusion, airspace consolidation or overt pulmonary edema. Mild asymmetric interstitial opacities of the lateral left midlung and left lung base. Bones appear grossly intact. IMPRESSION: Subtle interstitial opacities of the lateral left midlung and left lung base suggest atelectasis versus summation density. A mild nonspecific pneumonitis is considered less likely. ACT 112: Negative or not required by law. The above report was generated using voice recognition software. It may contain grammatical, syntax or spelling errors. Electronically signed by: Maged Joaquin M.D. 02/03/2021 1:21 PM Abdomen/Pelvis CT 02/03/21 13:34 CT SCAN OF THE ABDOMEN AND PELVIS WITH IV CONTRAST CLINICAL HISTORY: Painless jaundice. COMPARISON STUDY: No priors. TECHNIQUE: Following the IV administration of 120 cc of Optiray 320, CT scan of the abdomen and pelvis is performed from the lung bases to the proximal femora. Images are reviewed in the axial, sagittal, and coronal planes. IV contrast was administered without complication. A dose lowering technique was utilized adhering to the principles of ALARA. FINDINGS: Lung bases: The heart is normal in size and without pericardial effusion. The lung bases are clear noting bibasilar scarring/atelectasis. Liver: The contrast-enhanced liver is normal in size, contour, and attenuation. Hepatic and portal veins are patent. There is moderate to severe intrahepatic biliary ductal dilatation. There is focal cutoff of the dilated bile ducts at the hepatic hilum with the suggestion of an infiltrative mass lesion at the hilum on image #92. This measures approximately 2.5 cm. A portion of this likely involves the extrahepatic bile ducts as seen on image #99. Gallbladder: The gallbladder is distended but otherwise normal in appearance. The common bile duct is normal in caliber. Spleen: Normal in size and attenuation. Pancreas: Moderately atrophic and grossly unremarkable. The pancreatic duct is normal in caliber. Adrenal glands: Unremarkable. Kidneys: The contrast enhanced kidneys demonstrate cortical atrophy and are without hydronephrosis. The kidneys enhance symmetrically. A 1.4 cm cyst is noted in the interpolar right kidney. Abdominal vasculature: The abdominal aorta is normal in course and caliber. Bowel: There is mild fecal retention seen throughout the colon. No bowel obstruction is identified. The appendix is well-visualized and normal. Peritoneum: There is no intraperitoneal free air or abdominal ascites. There is a small fat-containing umbilical hernia. Lymphadenopathy: None. Pelvic viscera: The bladder, uterus, and adnexa are normal as visualized. Skeletal structures: The skeletal structures are osteopenic. There is mild lumbosacral spondylosis. No lytic or blastic lesions are seen. IMPRESSION: 1. There is moderate to severe intrahepatic biliary ductal dilatation with the suggestion of a subtle infiltrative underlying and obstructing mass lesion at the hepatic hilum. This may also involve the extrahepatic bile ducts. 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 GI follow-up is recommended. 2. The gallbladder is significantly distended but otherwise normal in appeara nce. This suggests concurrent obstruction of the cystic duct. 3. The common bile duct in the pancreatic duct are normal in caliber. 4. There is no evidence of distant metastatic disease throughout the abdomen or pelvis. 5. Additional findings as above. ACT 112: Negative or not required by law. Electronically signed by: Sd Elam M.D. 02/03/2021 3:24 PM Chest CTA 02/03/21 13:35 CT angio chest PE protocol CT DOSE: 562.21 mGy.cm HISTORY: 71 years-old Female with sob, painless jaundice PE. Acute shortness of breath with jaundice TECHNIQUE: Multiple CTA images of the chest were obtained after the intravenous administration of 120 ml Optiray. Coronal and sagittal MIPS were obtained from the axial data set and were submitted for review. All measurements were obtained according to NASCET criteria. A dose lowering technique was utilized adhering to the principles of ALARA. COMPARISON: CT abdomen and pelvis of same day FINDINGS: CTA: The heart is upper limits of normal in size. No pericardial effusion. No thoracic aortic aneurysm or dissection. Patency of the imaged great vessels. Descending thoracic aortic tortuosity. The pulmonary arterial tree is opacified to the level of the segmental branches and demonstrates no filling defects to suggest thromboembolic disease. CT CHEST: Unremarkable thyroid. No adenopathy. There is no pneumothorax, pleural effusion, airspace consolidation or overt pulmonary edema. Subsegmental bibasilar atelectasis. There are no suspicious pulmonary nodules or masses. Minimal mucus plugging of the right lung apex. Central airways are patent. Partially imaged intrahepatic biliary ductal dilation. No pneumoperitoneum. Unremarkable soft tissues. No acute fracture or suspicious bone lesion. Degenerative changes of the shoulders and spine. IMPRESSION: 1. No acute intrathoracic abnormality. No pulmonary emboli. 2. Please refer to the CT abdomen and pelvis study of same day for discussion of the biliary ductal dilation. ACT 112: Negative or not required by law. The above report was generated using voice recognition software. It may contain grammatical, syntax or spelling errors. Electronically signed by: Maged Joaquin M.D. 02/03/2021 3:18 PM Endo Retro Cholangiopancreatogram 02/03/21 16:22 [place] ERCP biliary ductal CLINICAL HISTORY: ERCP with stent placement. COMPARISON STUDY: Abdomen and pelvis CT 02/03/2021. FLUOROSCOPY TIME: 9 minutes and 35 seconds. FINDINGS: 19 fluoroscopic spot images of the right upper quadrant were submitted. The ampulla was cannulated and contrast was injected into the common bile duct. A balloon sweep was performed. There is a tight stricture at the bi furcation of the intrahepatic bile ducts. This is followed by placement of a bile duct stent. IMPRESSION: Fluoroscopy provided for ERCP as described above. ACT 112: Negative or not required by law. Electronically signed by: Domenico Ricardo M.D. 02/03/2021 8:09 PM Discharge Plan Visit Data Chief Complaint: Arrhythmia/Palpitations Stated Complaint: HEART PALPITATIONS ED Provider: Beau Joshi Discharge Problem: Painless jaundice, Gallbladder mass, Borderline results on serologic testing for Lyme disease Patient Disposition: Admitted As Inpatient Discharge Instructions Interventions: ED Discharge Assessment Last Done: 02/03/21 17:30
[2021-02-03] MEDS ORDERED: INDOMETHACIN 50 MG SUPP PR ONE (16:22)
--- NOTE | 2021-02-03 16:33 | Gastrointestinal Consultation ---
Date of Consultation February 03, 2021 Assessment & Plan (1) Painless jaundice: Pt is a 71 y/o female w painless jaundice for few weeks, anorexia, elevated LFTs particularly bilirubin; CT abd/pelvis showed moderate to severe intra/extrahepatic biliary ductal dilatation with the suggestion of a subtle infiltrative underlying and obstructing mass lesion at the hepatic hilum,suggestive of a cholangiocarcinoma. - Keep NPO - ERCP in OR by Dr. Connell today; will eventually need EUS for staging - IVF support - Further recs after ERCP completed Supervising Physician Co-Signing Physician Notes I performed a history and physical examination of the patient today, including specifically on physical exam - soft abdomen. I have discussed the patient's management with the advanced practitioner. Please refer to the nurse practitioner's note for the documented findings and plan of care. 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 Patient was explained in detail regarding risks, benefits, limitations and alternatives of the above endoscopic procedure. Risks of intravenous sedation used for procedure were also explained. Risks include, but not limited to perforation, bleeding, infection, respiratory distress, cardiac arrest and . Patient is also aware about the possibility of missed lesion. Patient's questions were answered. The patient verbalized understanding the information and agreed to undergo the procedure. History of Present Illness Reason for Consultation: Painless jaundice Requesting Physician: Dr. Beau Joshi Attending Physician: Dr. Roger Connell History of Present Illness Pt is a 71 y/o female who presented to ED w c/o jaundice x 2 weeks. She denies any fever, chills, CP, SOB, abd pain, n/v. She is having poor appetite in the l ast few weeks w some weight loss. Stools pale, urine dark. She denies sick contact. On eval, noted to have markedly elevated LFTs: Tbili 32, AST/ALT 97/92, Alk phos 252. No leukocytosis, H/H stable, INR 1.5. CT abd/pelvis w contrast: showed moderate to severe intrahepatic biliary ductal dilatation with the suggestion of a subtle infiltrative underlying and obstructing mass lesion at the hepatic hilum. This may also involve the extrahepatic bile ducts. 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 The gallbladder is significantly distended but otherwise normal in appearance. This suggests concurrent obstruction of the cystic duct. The common bile duct in the pancreatic duct are normal in caliber. There is no evidence of distant metastatic disease throughout the abdomen or pelvis. No ETOH, tobacco, illicit drugs, med including OTC supplements. Both parents w hx of cancer but she is unsure of what type. Allergies Allergy/AdvReac Type Severity Reaction Status Date / Time No Known Allergies Allergy Verified 02/03/21 16:43 Home Medications Medication Instructions Recorded Confirmed Type No Known Home Medications 02/03/21 02/03/21 History Patient History Medical History (Updated 02/03/21 @ 17:00 by TABATHA Vicente) No pertinent past medical history Surgical History (Updated 02/03/21 @ 17:00 by TABATHA Vicente) No pertinent past surgical history Family History (Updated 02/03/21 @ 16:59 by TABATHA Vicente) Father Cancer Mother Cancer Social History Smoking Status: Never smoker Feels Safe at Home: Yes Review of Systems Review of Systems: All systems reviewed & are unremarkable except as noted in HPI & below Physical Exam Constitutional: WD/WN, vitals as above well groomed, cooperative and comfortable Eyes: EOMs intact, icteric sclera ENMT: external ear and nose normal, oropharynx normal Respiratory: normal respiratory effort, lungs clear to auscultation Cardiovascular: RRR, no murmur, no edema Gastrointestinal (Abdomen): normal bowel sounds, soft, nontender, no hepatosplenomegaly Skin: no rashes, warm and dry + jaundice Psychiatric: A+Ox3, euthymic affect Lymphatic: no lymphedema Results & Data ([facility]) Vital Signs (Past 12 Hours) Vital Signs Temp Pulse Resp BP Pulse Ox 02/03/21 16:00 84 21 148/73 H 97 02/03/21 15:30 80 21 97 02/03/21 15:12 88 23 97 02/03/21 14:30 79 16 152/72 H 96 02/03/21 14:00 90 17 143/79 H 96 02/03/21 13:30 90 17 153/79 H 96 02/03/21 13:11 88 16 153/78 H 98 02/03/21 12:50 97 02/03/21 12:40 98 02/03/21 12:27 37.0 C 99 H 15 172/119 H 97
[2021-02-03] MEDS ORDERED: PIPERACILL/TAZOBAC CONSULT ACTIVE PRN (16:56)
--- NOTE | 2021-02-03 17:00 | History & Physical Bridge Note ---
Date of Service February 03, 2021 History & Physical Bridge Note I have examined the patient, reviewed the History & Physical and in the interval since the performance of the History & Physical I have noted the following changes of clinical significance: no changes noted
--- NOTE | 2021-02-03 17:00 | History & Physical Report ---
Date of Service February 03, 2021 Assessment & Plan (1) Painless jaundice: Plan: -admit to med/surg -patient presenting with painless jaundice, poor appetite x 2 weeks -in the ED, found to have significant transaminitis with total bili 32.6, AST 97, ALT 92, alk phos 252. INR 1.5 -CT ABD/pelvis shows moderate to severe intrahepatic biliary ductal dilatation with the suggestion of a subtle infiltrative underlying and obstructing mass lesion at the hepatic hilum -GI planning on ERCP tonight -no signs of infection, however will start empiric Zosyn -hepatitis panel -follow path of biopsy from ERCP (2) Abnormal urinalysis: Plan: -UA shows possible UTI vs. contaminant -follow culture -on Zosyn as above -no infectious signs or symptoms (3) Borderline results on serologic testing for Lyme disease: Plan: -Lyme IgG positive, IgM negative -likely not acute infection -follow Western Blot (4) DVT prophylaxis: Plan: -SCDs History of Present Illness Chief Complaint: Jaundice Primary Care Provider: NO PCP 71 year old female without significant past surgical or medical history who presents to the ED for evaluation of painless jaundice and poor appetite. Patient has not seen a medical provider in several years. She reports her symptoms have been ongoing for the past couple of weeks. Reports being on vacation with her family in [place] and was told that her skin was yellowing however did not want to go to the hospital. Patient reports a poor appetite however denies noticing any weight loss. No nausea, vomiting, abdominal pain. Reports decreased bowel movements and did note that stools were purchasing/receiving in color. No bright red blood per rectum or dark tarry stools. She denies chest pain shortness of breath. No other recent illnesses, fevers, chills. She denies lightheadedness, dizziness, diaphoresis, syncopal events. No urinary symptoms. In the ED, patient is found to have significant transaminitis with total bili 32.6, AST 97, ALT 92, alk phos 252. INR 1.5. CT ABD/pelvis shows moderate to severe intrahepatic biliary ductal dilatation with the suggestion of a subtle infiltrative underlying and obstructing mass lesion at the hepatic hilum. Patient was evaluated by GI and will be going for ERCP and stent placement this evening. Allergies Allergy/AdvReac Type Severity Reaction Status Date / Time No Known Allergies Allergy Verified 02/03/21 16:43 Home Medications Medication Instructions Recorded Confirmed Type No Known Home Medications 02/03/21 02/03/21 History Past Med/Surg History Medical History No pertinent past medical history Surgical History No pertinent past surgical history Family History Father Cancer Mother Cancer Social History Smoking Status: Never smoker Hx Alcohol Use: Yes Alcohol Intake Frequency: Monthly or Less Feels Safe at Home: Yes Review of Systems Review of Systems: ROS per HPI, all other systems reviewed and negative Physical Exam Physical Exam: please refer to Dr. Kuo's addendum for physical exam Results & Data Results & Data ([facility]) Vital Signs (Past 12 Hours) Vital Signs Temp Pulse Resp BP Pulse Ox 02/03/21 16:30 87 16 159/84 H 96 02/03/21 16:00 84 21 148/73 H 97 02/03/21 15:30 80 21 97 02/03/21 15:12 88 23 97 02/03/21 14:30 79 16 152/72 H 96 02/03/21 14:00 90 17 143/79 H 96 02/03/21 13:30 90 17 153/79 H 96 02/03/21 13:11 88 16 153/78 H 98 02/03/21 12:50 97 02/03/21 12:40 98 02/03/21 12:27 37.0 C 99 H 15 172/119 H 97 Laboratory Results Short CBC 02/03/21 Range/Units 12:45 WBC 7.96 (4.8-10.8) K/uL Hgb 13.1 (12.0-16.0) g/dL Hct 37.1 (37-47) % Plt Count 327 (130-400) K/uL BMP 02/03/21 12:45 Sodium 133 L Potassium 3.7 Chloride 100 Carbon Dioxide 19 L BUN 17 Creatinine Glucose 77 Calcium 9.5 Cardiac Enzymes 02/03/21 Range/Units 12:45 Total Creatine Kinase 117 (26-192) U/L Troponin I < 0.015 (0-0.045) ng/ml Liver Function 02/03/21 Range/Units 12:45 Total Bilirubin 32.6 H (0.2-1) mg/dl Direct Bilirubin 27.4 H (0-0.2) mg/dl AST 97 H (15-37) U/L ALT 92 H (12-78) U/L Alkaline Phosphatase 252 H (45-117) U/L Albumin 2.9 L (3.4-5.0) gm/dl Urine 02/03/21 Range/Units 15:12 Urine Color Dark Yellow Urine Appearance Clear (Clear) Urine pH 6.0 (4.5-7.5) Ur Specific [place] 1.021 (1.000-1.030) Urine Protein Negative (Negative) Urine Glucose (UA) Negative (Negative) Diagnostic Findings Chest X-Ray 02/03/21 12:36 XR chest 1V portable HISTORY: 71 years-old Female Chest Pain acute atypical chest pain COMPARISON: None TECHNIQUE: Portable AP view of the chest FINDINGS: Cardiomediastinal and hilar silhouettes are within normal limits. No pneumothorax, pleural effusion, airspace consolidation or overt pulmonary edema. Mild asymmetric interstitial opacities of the lateral left midlung and left lung base. Bones appear grossly intact. IMPRESSION: Subtle interstitial opacities of the lateral left midlung and left l jillian base suggest atelectasis versus summation density. A mild nonspecific pneumonitis is considered less likely. ACT 112: Negative or not required by law. The above report was generated using voice recognition software. It may contain grammatical, syntax or spelling errors. Electronically signed by: Maged Joaquin M.D. 02/03/2021 1:21 PM Abdomen/Pelvis CT 02/03/21 13:34 CT SCAN OF THE ABDOMEN AND PELVIS WITH IV CONTRAST CLINICAL HISTORY: Painless jaundice. COMPARISON STUDY: No priors. TECHNIQUE: Following the IV administration of 120 cc of Optiray 320, CT scan of the abdomen and pelvis is performed from the lung bases to the proximal femora. Images are reviewed in the axial, sagittal, and coronal planes. IV contrast was administered without complication. A dose lowering technique was utilized adhering to the principles of ALARA. FINDINGS: Lung bases: The heart is normal in size and without pericardial effusion. The lung bases are clear noting bibasilar scarring/atelectasis. Liver: The contrast-enhanced liver is normal in size, contour, and attenuation. Hepatic and portal veins are patent. There is moderate to severe intrahepatic biliary ductal dilatation. There is focal cutoff of the dilated bile ducts at the hepatic hilum with the suggestion of an infiltrative mass lesion at the hilum on image #92. This measures approximately 2.5 cm. A portion of this likely involves the extrahepatic bile ducts as seen on image #99. Gallbladder: The gallbladder is distended but otherwise normal in appearance. The common bile duct is normal in caliber. Spleen: Normal in size and attenuation. Pancreas: Moderately atrophic and grossly unremarkable. The pancreatic duct is normal in caliber. Adrenal glands: Unremarkable. Kidneys: The contrast enhanced kidneys demonstrate cortical atrophy and are without hydronephrosis. The kidneys enhance symmetrically. A 1.4 cm cyst is noted in the interpolar right kidney. Abdominal vasculature: The abdominal aorta is normal in course and caliber. Bowel: There is mild fecal retention seen throughout the colon. No bowel obstruction is identified. The appendix is well-visualized and normal. Peritoneum: There is no intraperitoneal free air or abdominal ascites. There is a small fat-containing umbilical hernia. Lymphadenopathy: None. Pelvic viscera: The bladder, uterus, and adnexa are normal as visualized. Skeletal structures: The skeletal structures are osteopenic. There is mild lumbosacral spondylosis. No lytic or blastic lesions are seen. IMPRESSION: 1. There is moderate to severe intrahepatic biliary ductal dilatation with the suggestion of a subtle infiltrative underlying and obstructing mass lesion at the hepatic hilum. This may also involve the extrahepatic bile ducts. 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 GI follow-up is recommended. 2. The gallbladder is significantly distended but otherwise normal in appearance. This suggests concurrent obstruction of the cystic duct. 3. The common bile duct in the pancreatic duct are normal in caliber. 4. There is no evidence of distant metastatic disease throughout the abdomen or pelvis. 5. Additional findings as above. ACT 112: Negative or not required by law. Electronically signed by: Sd Elam M.D. 02/03/2021 3:24 PM Chest CTA 02/03/21 13:35 CT angio chest PE protocol CT DOSE: 562.21 mGy.cm HISTORY: 71 years-old Female with sob, painless jaundice PE. Acute shortness of breath with jaundice TECHNIQUE: Multiple CTA images of the chest were obtained after the intravenous administration of 120 ml Optiray. Coronal and sagittal MIPS were obtained from the axial data set and were submitted for review. All measurements were obtained according to NASCET criteria. A dose lowering technique was utilized adhering to the principles of ALARA. COMPARISON: CT abdomen and pelvis of same day FINDINGS: CTA: The heart is upper limits of normal in size. No pericardial effusion. No thoracic aortic aneurysm or dissection. Patency of the imaged great vessels. Descending thoracic aortic tortuosity. The pulmonary arterial tree is opacified to the level of the segmental branches and demonstrates no filling defects to suggest thromboembolic disease. CT CHEST: Unremarkable thyroid. No adenopathy. There is no pneumothorax, pleural effusion, airspace consolidation or overt pulmonary edema. Subsegmental bibasilar atelectasis. There are no suspicious pulmonary nodules or masses. Minimal mucus plugging of the right lung apex. Central airways are patent. Partially imaged intrahepatic biliary ductal dilation. No pneumoperitoneum. Unremarkable soft tissues. No acute fracture or suspicious bone lesion. Degenerative changes of the shoulders and spine. IMPRESSION: 1. No acute intrathoracic abnormality. No pulmonary emboli. 2. Please refer to the CT abdomen and pelvis study of same day for discussion of the biliary ductal dilation. ACT 112: Negative or not required by law. The above report was generated using voice recognition software. It may contain grammatical, syntax or spelling errors. Electronically signed by: Maged Joaquin M.D. 02/03/2021 3:18 PM Code Status & VTE Plan VTE Prophylaxis Plan VTE Prophylaxis will be ordered: Yes Supervising Physician Co-Signing Physician Notes Patient is a 71-year-old female with no significant past medical history presents with history of worsening jaundice since 2 weeks duration. Patient states having very poor appetite lately but denies any significant weight loss. She admits to delaying her care given recent vacation trip to [place]. She denies any alcohol use or Tylenol use recently. Also denies chest pain, shortness of breath, abdominal pain, fever, chills, IV drug use. Admits to having pale-colored stool and dark urine. Please review HPI for complete details of presentation. Blood work suggestive of obstructive jaundice, elevated INR, hypoalbuminemia, mild anion gap metabolic acidosis. Urine analysis abnormal but likely contaminated sample. CT chest showed no acute intracranial abnormality. CT abdomen suggestive of moderate to severe in trahepatic biliary duct dilatation and an obstructing mass lesion at the hepatic hilum. Concerning for cholangiocarcinoma. Gallbladder also noted to be significantly distended and findings suggestive of obstruction of the cystic duct. Physical Exam: Vitals signs as noted above General Appearance:Moderately built and nourished, no apparent distress Head: normocephalic, Atraumatic Eyes: normal inspection, EOMI, +Icterus Neck: supple, Trachea midline Respiratory/Chest: Normal breath sounds, CTA Cardiovascular: S1, S2, No murmur Abdomen/GI:Soft, Non tender, Bowel sounds present Extremities/Musculoskeletal:normal inspection, no edema Neurologic/Psych:AAOX3, grossly no focal neurological deficits Skin: normal color, warm, +Jaundiced Obstructive painless jaundice Likely cholangiocarcinoma Plan for urgent ERCP We will empirically start on IV Zosyn, IV fluids Appreciate GI input Monitor LFTs, INR Keep n.p.o. for now Blood, urine cultures obtained Monitor sodium levels Hepatitis panel ordered I personally reviewed the record. Patient is interviewed and examined at bedside. Patient's care is coordinated with Claribel Patel [employer] MANAGER. Please refer to the documentation above for details of patient's presentation and for discussion of other issues.
[2021-02-03] MEDS ORDERED: MIDAZOLAM HCL 1 MG/ML 2ML VIAL ONE (17:11)
[2021-02-03] MEDS ORDERED: DEXAMETHASONE SOD INJ 4 MG/ML VIAL ONE (17:11)
[2021-02-03] MEDS ORDERED: PROPOFOL IV EMULSION 10 MG/ML 20 ML VIAL IV ONE ×4 (17:11→18:26)
[2021-02-03] MEDS ORDERED: LIDOCAINE 2% 2 ML VIAL/AMP(20MG/ML) INFIL ONE (17:11)
[2021-02-03] MEDS ORDERED: fentaNYL citrate 100 MCG/2 ML VIAL ONE ×2 (17:11→19:09)
[2021-02-03] MEDS ORDERED: ONDANSETRON INJ 2 MG/ML 2 ML VIAL ONE (17:11)
--- NOTE | 2021-02-03 17:24 | Anesthesiology Consultation ---
Date of Service February 03, 2021 Assessment & Plan Chart Review Chart Review: Acceptable Risk for Surgery and Patient NOT seen in Pre Admission Testing covid neg 02/03/21 Consults Requested none History Surgery Operation Date: 02/03/21 10:20 Proposed Procedures p Endoscopic Retrograde Cholangiopancreato - Roger Connell MD Height/Weight Height: 5 ft 5 in Weight: 73.8 kg Allergies Allergy/AdvReac Type Severity Reaction Status Date / Time No Known Allergies Allergy Verified 02/03/21 16:43 Medications Home Medications Medication Instructions Recorded Confirmed Last Taken No Known Home Medications 02/03/21 02/03/21 Unknown Past Medical History Medical History (Updated 02/03/21 @ 17:45 by Cornell Nix MD) Borderline results on serologic testing for Lyme disease No pertinent past medical history Painless jaundice Exercise / Class Metabolic Activity II 4-5 Yardwork/Stairs/Walk up hill Past Family History Family History Father Cancer Mother Cancer Past Surgical History Surgical History No pertinent past surgical history Past Anesthesia History No Hx of Anesthesia Complications and No Family Hx of Anesthesia Complications History of PONV No Hx of PONV and No Hx of Motion Sickness Social History Smoking Status: Never smoker Do You Dip or Chew Tobacco: No Hx Alcohol Use: Yes Hx Substance Use: No Physical Exam Vital Signs Last Vital Signs Temp 37 C 02/03/21 17:30 Pulse 87 02/03/21 17:30 Resp 16 02/03/21 17:30 BP 159/84 H 02/03/21 17:30 Pulse Ox 96 02/03/21 17:30 Testing Laboratory Results 02/03/21 12:45 02/03/21 12:45 PT 14.7 Seconds (9.0-12.0) H 02/03/21 12:45 INR 1.5 (0.9-1.1) H 02/03/21 12:45 APTT 33.0 Seconds (21.0-31.0) H 02/03/21 12:45 Urine Color Dark Yellow 02/03/21 15:12 Urine Appearance Clear (Clear) 02/03/21 15:12 Urine pH 6.0 (4.5-7.5) 02/03/21 15:12 Ur Specific [place] 1.021 (1.000-1.030) 02/03/21 15:12 Urine Protein Negative (Negative) 02/03/21 15:12 Urine Glucose (UA) Negative (Negative) 02/03/21 15:12 Urine Ketones 1+ (Negative) H 02/03/21 15:12 Urine Nitrite Negative (Negative) 02/03/21 15:12 Ur Leukocyte Esterase 1+ (Negative) H 02/03/21 15:12 Urine WBC (Auto) 5-10 /hpf (0-5) H 02/03/21 15:12 Urine RBC (Auto) 5-10 /hpf (0-4) H 02/03/21 15:12 U Hyaline Cast (Auto) 5-10 /lpf (0-5) H 02/03/21 15:12 U Epithel Cells (Auto) 10-20 /lpf (0-5) H 02/03/21 15:12 Urine Bacteria (Auto) Negative (Negative) 02/03/21 15:12 Electrocardiogram Date: 02/03/21 Findings: + ST @ (102) lae. poss inf infarct Chest X-Ray Findings: no infiltrate
[2021-02-03] MEDS ORDERED: GLYCOPYRROLATE 0.2 MG/ML VIAL ONE (17:40)
[2021-02-03] MEDS ORDERED: ePHEDrine sulfate 50 MG/ML AMP IV PRN (17:45)
[2021-02-03] MEDS ORDERED: ONDANSETRON INJ 2 MG/ML 2 ML VIAL IV PRN (17:45)
[2021-02-03] MEDS ORDERED: ATROPINE SULFATE 0.1 MG/ML 10ML SYR IV PRN (17:45)
[2021-02-03] MEDS ORDERED: fentaNYL citrate 100 MCG/2 ML VIAL IV PRN (17:45)
--- NOTE | 2021-02-03 19:33 | Operative Report ---
Post Operative Report Pre & Post Diagnosis Operation Date: 02/03/21 10:20 Pre-Op Diagnosis: Painless jaundice Post-Op Diagnosis: Biliary Stricture I identified the patient and participated in the time-out.: Yes Procedure Operation Date: 02/03/21 10:20 Actual Procedures p Endoscopic Retrograde Cholangiopancreatography, Bile Duct Brushings, Bile Duct Stent Placement (Not Applicable) - Roger Connell MD Surgeon Roger Connell MD Hand Violin Maker None Estimated Blood Loss 0 Findings See Below (Malignant appearing hilar stricture, stent placed) Specimens Cytology brush Description of Procedure ERCP I attest to the content of the Intraoperative Record and any orders documented therein. Any exceptions are noted below.
--- NOTE | 2021-02-03 19:56 | GI REPORT ---
Patient Name: Shonna Anderson Procedure Date: 02/03/2021 5:12 PM Date of : 1950 Admit Type: Emergency Department Age: 71 Gender: Female Attending MD: Roger Connell MD Procedure: ERCP Providers: Roger Connell MD Referring MD: Reynaldo Dominguez Indications: Jaundice Medicines: Propofol per Anesthesia Complications: No immediate complications. Estimated Blood Loss: Estimated blood loss: none. Procedure: Pre-Anesthesia Assessment: - Prior to the procedure, a History and Physical was performed, and patient medications, allergies and sensitivities were reviewed. The patient's tolerance of previous anesthesia was reviewed. - The risks and benefits of the procedure and the sedation options and risks were discussed with the patient. All questions were answered and informed consent was obtained. - Patient identification and proposed procedure were verified prior to the procedure by the physician and the nurse. The procedure was verified in the procedure room. - Pre-procedure physical examination revealed no contraindications to sedation. After obtaining informed consent, the scope was passed under direct vision. Throughout the procedure, the patient's blood pressure, pulse, and oxygen saturations were monitored continuously. The Scope was introduced through the mouth, and advanced to the duodenum and used to inject contrast into the bile duct. The ERCP was accomplished without difficulty. The patient tolerated the procedure well. Findings: The information security officer film was normal. The esophagus was successfully intubated under direct vision. The scope was advanced to a normal major papilla in the descending duodenum without detailed examination of the pharynx, larynx and associated structures, and upper GI tract. The upper GI tract was grossly normal. A 0.025 inch x 450 cm angled Visiglide wire was passed into the ventral pancreatic duct. The wire was kept in place to assist in biliary ductal cannulation. A 0.025 inch x 450 cm angled Visiglide wire was passed into the biliary tree. The Fusion OMNI sphincterotome was passed over the guidewire and the bile duct was then deeply cannulated. The PD wire was removed. Contrast was injected. Opacification of the entire biliary tree except for the gallbladder was successful. The maximum diameter of the ducts was 8 mm. The common hepatic duct with patent communication between right and left hepatic ducts (Bismuth I) contained a single severe stenosis 20 mm in length. The left and right hepatic ducts and all intrahepatic branches were diffusely dilated. Biliary sphincterotomy was made with a monofilament traction (standard) sphincterotome using ERBE electrocautery. There was no post-sphincterotomy bleeding. The biliary tree was swept with an 11.5 mm balloon starting at the bifurcation. Sludge was swept from the duct. Cells for cytology were obtained by brushing in the hepatic duct bifurcation. Verification of patient identification for the specimen was done by the physician and nurse using the patient's name and date. Dilation of the hepatic duct bifurcation with 4-5-7 Fr catheter dilator was successful. The hepatic duct bifurcation was successfully dilated with a 4 mm balloon dilator. One 7 Fr by 10 cm transpapillary plastic biliary stent with a single external pigtail and a single internal pigtail was placed into the right hepatic duct. Bile flowed through the stent. The stent was in good position. Indomethacin 100 mg was given via suppository to decrease the risk of post-ERCP pancreatitis (PEP). Impression: - A single severe biliary stricture was found in the hepatic duct system (Bismuth I). The stricture was malignant appearing. Cells for cytology obtained at the hepatic duct bifurcation. The stricture was dilated to allow stenting. - One plastic biliary stent was placed into the right hepatic duct. Recommendation: - [facility]. - Await cytology results. - Monitor LFTs. Roger Connell MD 02/03/2021 7:55:50 PM This report has been signed electronically. Note Initiated On: 02/03/2021 5:12 PM Number of Addenda: 0 I attest to the content of the Intraoperative Record and orders documented therein, exceptions below {[id number]}
--- NOTE | 2021-02-03 20:02 | Anesthesiology Progress Note ---
Date of Service February 03, 2021 Anesthesia Post Procedure Vital Signs Vital Signs: Temp Pulse Pulse Pulse Resp BP BP 02/03/21 20:00 81 16 137/55 L 02/03/21 19:50 82 19 114/80 02/03/21 19:40 36.0 C L 90 19 148/91 H 02/03/21 18:00 36.6 C 105 H 16 167/96 H 02/03/21 17:30 37 C 87 16 159/84 H 02/03/21 17:00 87 16 159/84 H 02/03/21 16:30 87 16 159/84 H 02/03/21 16:00 84 21 148/73 H 02/03/21 15:30 80 21 02/03/21 15:12 88 23 02/03/21 14:30 79 16 152/72 H 02/03/21 14:00 90 17 143/79 H 02/03/21 13:30 90 17 153/79 H 02/03/21 13:11 88 16 153/78 H 02/03/21 12:50 02/03/21 12:40 02/03/21 12:27 37.0 C 99 H 15 172/119 H Pulse Ox 02/03/21 20:00 98 02/03/21 19:50 100 02/03/21 19:40 98 02/03/21 18:00 99 02/03/21 17:30 96 02/03/21 17:00 96 02/03/21 16:30 96 02/03/21 16:00 97 02/03/21 15:30 97 02/03/21 15:12 97 02/03/21 14:30 96 02/03/21 14:00 96 02/03/21 13:30 96 02/03/21 13:11 98 02/03/21 12:50 97 02/03/21 12:40 98 02/03/21 12:27 97 Transfer of Care Handoff Completed per policy Notes Mental Status: alert / awake / arousable and participated in evaluation Patient Amnestic to Procedure: Yes Nausea / Vomiting: adequately controlled Pain: adequately controlled Airway Patency, RR, SpO2: stable & adequate BP & HR: stable & adequate Hydration State: stable & adequate Anesthetic Complications: no major complications apparent and Pt Satisfied with anesthetic care
--- NOTE | 2021-02-03 20:10 | Fluoroscopy Report ---
[place] ERCP biliary ductal CLINICAL HISTORY: ERCP with stent placement. COMPARISON STUDY: Abdomen and pelvis CT 02/03/2021. FLUOROSCOPY TIME: 9 minutes and 35 seconds. FINDINGS: 19 fluoroscopic spot images of the right upper quadrant were submitted. The ampulla was can nulated and contrast was injected into the common bile duct. A balloon sweep was performed. There is a tight stricture at the bifurcation of the intrahepatic bile ducts. This is followed by placement of a bile duct stent. IMPRESSION: Fluoroscopy provided for ERCP as described above. ACT 112: Negative or not required by law. Electronically signed by: Domenico Ricardo M.D. 02/03/2021 8:09 PM
[2021-02-03] MEDS ORDERED: LACTATED RINGER'S 1,000 ML IV SCH (20:45)
[2021-02-03] MEDS ORDERED: PIPERACILLIN/TAZOBACTAM 3.375 GM in DEXTROSE 5% 100 ML IV ONE (21:00)
[2021-02-03] MEDS ORDERED: LACTATED RINGER'S 1,000 ML IV ONE (22:50)
[2021-02-04 00:23] LABS: iSTAT Creatinine 0.8 mg/dl (0.6-1.3); iSTAT Hemoglobin 13.3 g/dl (12.0-16.0); iSTAT Ionized Calcium 1.05 mmol/l (1.12-1.32); iSTAT Potassium 4.4 mmol/L (3.3-5.0)
[2021-02-04] MEDS: PIPERACILLIN/TAZOBACTAM 3.375 GM in DEXTROSE 5% 100 ML IV SCH ×3 (03:58→19:29)
[2021-02-04] MEDS ORDERED: COUGH DROP (SUGAR FREE) LOZ 24 LOZ/1 BOX BUCCAL ONE (04:04)
[2021-02-04 06:15] LABS: Hematocrit (blood only) 33.6 % (37-47); Hemoglobin 11.2 g/dL (12.0-16.0); Mean Corpuscular Hemoglobin 29.2 pg (25-34); Mean Corpuscular Hgb Conc 33.3 g/dL (32-36); Mean Corpuscular Volume 87.5 fL (80-100); Mean Platelet Volume 10.5 fL (7.4-10.4); Platelet Count 258 K/uL (130-400); RDW Coefficient of Variation 16.6 % (11.5-14.5); RDW Standard Deviation 53.2 fL (36.4-46.3); Red Blood Count 3.84 M/uL (4.2-5.4); White Blood Count 6.39 K/uL (4.8-10.8)
[2021-02-04 06:24] LABS: INR 1.5 (0.9-1.1); Prothrombin Time 14.6 Seconds (9.0-12.0)
[2021-02-04 06:52] LABS: Alanine Aminotransferase 70 U/L (12-78); Albumin Level 2.2 gm/dl (3.4-5.0); Alkaline Phosphatase 190 U/L (45-117); Aspartate Aminotransferase 76 U/L (15-37); Blood Urea Nitrogen 12 mg/dl (7-18); Calcium 8.4 mg/dl (8.5-10.1); Carbon Dioxide 25 mmol/L (21-32); Chloride 102 mmol/L (98-107); Glucose 116 mg/dl (70-99); Potassium 3.9 mmol/L (3.5-5.1); Sodium 134 mmol/L (136-145)
--- NOTE | 2021-02-04 07:38 | Electrocardiogram Report ---
Test Reason : Blood Pressure : / mmHG Vent. Rate : 102 BPM Atrial Rate : 102 BPM P-R Int : 168 ms QRS Dur : 082 ms QT Int : 332 ms P-R-T Axes : 050 -07 015 degrees QTc Int : 432 ms Sinus tachycardia Possible Left atrial enlargement Inferior infarct , age undetermined Cannot rule out Anterior infarct , age undetermined Abnormal ECG No previous ECGs available Confirmed by Oleksandr Armando ([id number]) on 02/04/2021 7:38:20 AM Referred By: Confirmed By:Oleksandr Armando
--- NOTE | 2021-02-04 12:21 | Hospitalist Progress Note ---
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 The stricture was malignant appearing. Cells for cytology obtained at the hepatic duct bifurcation. The stricture was dilated to allow stenting. One plastic biliary stent was placed in the right hepatic duct. -Cytology:pending -Tien panel pending -Monitor LFTs -Appreciate GI Input -Continue Zosyn for now -Received IV fluids -On full liquid diet -Advance diet as able (2) Abnormal urinalysis: Plan: -UA likely contaminant -Urine culture: Negative Mild Hyponatremia Metabolic acidosis-Resolved Monitor Sodium levels (3) Borderline results on serologic testing for Lyme disease: Plan: -Lyme IgG positive, IgM negative -likely not acute infection -follow Western Blot (4) DVT prophylaxis: Plan: -SCDs for now Encourage to ambulate Admission and Anticipated Discharge Date Admission Date: February 03, 2021 Subjective Patient is seen and examined at bedside States feeling much better today Offers no new complaints Tolerating clear liquid diet Denies any abdominal pain Also denies any chest pain, dyspnea, dizziness Review of Systems Review of Systems: All systems reviewed & are unremarkable except as noted in Subjective Physical Exam Physical Exam: Physical Exam: Vitals signs as noted above General Appearance:Moderately built and nourished, no apparent distress Head: normocephalic, Atraumatic Eyes: normal inspection, EOMI, +Icterus Neck: supple, Trachea midline Respiratory/Chest: Normal breath sounds, CTA Cardiovascular: S1, S2, No murmur Abdomen/GI:Soft, Non tender, Bowel sounds present Extremities/Musculoskeletal:normal inspection, no edema Neurologic/Psych:AAOX3, grossly no focal neurological deficits Skin: normal color, warm, +Jaundiced Results & Data Results & Data ([facility]) Vital Signs (Past 12 Hours) Vital Signs Temp Pulse Resp BP Pulse Ox 02/04/21 07:31 36.6 C 61 16 107/61 96 02/04/21 03:46 36.5 C 67 16 137/69 95 Laboratory Results Short CBC 02/03/21 02/04/21 Range/Units 12:45 05:58 WBC 7.96 6.39 (4.8-10.8) K/uL Hgb 13.1 11.2 L (12.0-16.0) g/dL Hct 37.1 33.6 L (37-47) % Plt Count 327 258 (130-400) K/uL BMP 02/03/21 02/03/21 02/04/21 12:45 20:59 05:58 Sodium 133 L 134 L Potassium 3.7 3.9 Chloride 100 102 Carbon Dioxide 19 L 25 BUN 17 12 Creatinine Glucose 77 116 H Calcium 9.5 8.4 L Cardiac Enzymes 02/03/21 Range/Units 12:45 Total Creatine Kinase 117 (26-192) U/L Troponin I < 0.015 (0-0.045) ng/ml Liver Function 02/03/21 02/04/21 Range/Units 12:45 05:58 Total Bilirubin 32.6 H 27.0 H (0.2-1) mg/dl Direct Bilirubin 27.4 H (0-0.2) mg/dl AST 97 H 76 H (15-37) U/L ALT 92 H 70 (12-78) U/L Alkaline Phosphatase 252 H 190 H (45-117) U/L Albumin 2.9 L 2.2 L (3.4-5.0) gm/dl Urine 02/03/21 Range/Units 15:12 Urine Color Dark Yellow Urine Appearance Clear (Clear) Urine pH 6.0 (4.5-7.5) Ur Specific [place] 1.021 (1.000-1.030) Urine Protein Negative (Negative) Urine Glucose (UA) Negative (Negative)
[2021-02-05] MEDS: PIPERACILLIN/TAZOBACTAM 3.375 GM in DEXTROSE 5% 100 ML IV SCH ×3 (03:30→19:25)
[2021-02-05 04:56] LABS: Hepatitis A Antibody IgM NON-REACTIVE (NON-REACTIVE); Hepatitis B Core Antibody IgM NON-REACTIVE (NON-REACTIVE)
[2021-02-05 07:39] LABS: Hematocrit (blood only) 34.1 % (37-47); Hemoglobin 11.7 g/dL (12.0-16.0); Mean Corpuscular Hemoglobin 30.2 pg (25-34); Mean Corpuscular Hgb Conc 34.3 g/dL (32-36); Mean Corpuscular Volume 88.1 fL (80-100); Mean Platelet Volume 10.7 fL (7.4-10.4); Platelet Count 227 K/uL (130-400); RDW Coefficient of Variation 16.7 % (11.5-14.5); Red Blood Count 3.87 M/uL (4.2-5.4); White Blood Count 5.21 K/uL (4.8-10.8)
[2021-02-05 07:47] LABS: INR 1.2 (0.9-1.1); Prothrombin Time 12.2 Seconds (9.0-12.0)
[2021-02-05 08:46] LABS: Alanine Aminotransferase 74 U/L (12-78); Albumin Level 2.1 gm/dl (3.4-5.0); Alkaline Phosphatase 175 U/L (45-117); Aspartate Aminotransferase 82 U/L (15-37); Bilirubin,Total 25.2 mg/dl (0.2-1); Blood Urea Nitrogen 11 mg/dl (7-18); Calcium 8.7 mg/dl (8.5-10.1); Carbon Dioxide 26 mmol/L (21-32); Chloride 105 mmol/L (98-107); Glucose 103 mg/dl (70-99); Potassium 3.5 mmol/L (3.5-5.1); Sodium 139 mmol/L (136-145)
--- NOTE | 2021-02-05 15:13 | Hospitalist Progress Note ---
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 The stricture was malignant appearing. Cells for cytology obtained at the hepatic duct bifurcation. The stricture was dilated to allow stenting. One plastic biliary stent was placed in the right hepatic duct. -Cytology:pending -Hepatitis panel-hepatitis A, hepatitis B nonreactive -Monitor LFTs -Appreciate GI Input -Continue Zosyn for now -Received IV fluids -Advance to heart healthy diet -LFTs slowly improving (2) Abnormal urinalysis: Plan: -UA likely contaminant -Urine culture: Negative Mild Hyponatremia -Resolved Metabolic acidosis-Resolved Monitor Sodium levels (3) Borderline results on serologic testing for Lyme disease: Plan: -Lyme IgG positive, IgM negative -likely not acute infection -follow Western Blot (4) DVT prophylaxis: Plan: -SCDs for now Encourage to ambulate Admission and Anticipated Discharge Date Admission Date: February 03, 2021 Subjective Patient is seen and examined at bedside No new complaints Denies abdominal pain, chest pain, dyspnea, dizziness LFTs slowly improving Tolerates diet Review of Systems Review of Systems: All systems reviewed & are unremarkable except as noted in Subjective Physical Exam Physical Exam: Physical Exam: Vitals signs as noted above General Appearance:Moderately built and nourished, no apparent distress Head: normocephalic, Atraumatic Eyes: normal inspection, EOMI, +Icterus Neck: supple, Trachea midline Respiratory/Chest: Normal breath sounds, CTA Cardiovascular: S1, S2, No murmur Abdomen/GI:Soft, Non tender, Bowel sounds present Extremities/Musculoskeletal:normal inspection, no edema Neurologic/Psych:AAOX3, grossly no focal neurological deficits Skin: normal color, warm, +Jaundiced Results & Data [facility]) Vital Signs (Past 12 Hours) Vital Signs Temp Pulse Resp BP Pulse Ox 02/05/21 07:40 36.4 C L 55 L 20 176/69 H 93 Laboratory Results Short CBC 02/05/21 Range/Units 06:40 WBC 5.21 (4.8-10.8) K/uL Hgb 11.7 L (12.0-16.0) g/dL Hct 34.1 L (37-47) % Plt Count 227 (130-400) K/uL BMP 02/05/21 06:40 Sodium 139 Potassium 3.5 Chloride 105 Carbon Dioxide 26 BUN 11 Creatinine Glucose 103 H Calcium 8.7 Liver Function 02/05/21 Range/Units 06:40 Total Bilirubin 25.2 H (0.2-1) mg/dl AST 82 H (15-37) U/L ALT 74 (12-78) U/L Alkaline Phosphatase 175 H (45-117) U/L Albumin 2.1 L (3.4-5.0) gm/dl
[2021-02-05] MEDS ORDERED: PROMETHAZINE HCL 12.5 MG in SODIUM CHLORIDE 0.9% 50 ML IV PRN (23:56)
[2021-02-06] MEDS: PIPERACILLIN/TAZOBACTAM 3.375 GM in DEXTROSE 5% 100 ML IV SCH (03:59)
[2021-02-06 08:49] LABS: Alanine Aminotransferase 65 U/L (12-78); Aspartate Aminotransferase 72 U/L (15-37); Blood Urea Nitrogen 15 mg/dl (7-18); Calcium 8.3 mg/dl (8.5-10.1); Carbon Dioxide 26 mmol/L (21-32); Chloride 105 mmol/L (98-107); Glucose 108 mg/dl (70-99); Potassium 3.5 mmol/L (3.5-5.1); Sodium 138 mmol/L (136-145)
[2021-02-06 09:02] LABS: Alkaline Phosphatase 173 U/L (45-117); Bilirubin,Total 24.9 mg/dl (0.2-1)
--- NOTE | 2021-02-06 11:31 | Hospitalist Progress Note ---
Date of Service February 06, 2021 Assessment & Plan (1) Painless jaundice: Plan: Obstructive painless jaundice Secondary to Cholangiocarcinoma -CT ABD/pelvis shows moderate to severe intrahepatic biliary ductal dilatation with the suggestion of a subtle infiltrative underlying and obstructing mass lesion at the hepatic hilum -S/P ERCP: Single severe biliary stricture was found in the hepatic ductal system. The stricture was malignant appearing. Cells for cytology obtained at the hepatic duct bifurcation. The stricture was dilated to allow stenting. One plastic biliary stent was placed in the right hepatic duct. -Cytology: Malignant cells present consistent with adenocarcinoma. -Hepatitis panel-hepatitis A, hepatitis B nonreactive -Monitor LFTs -Appreciate GI Input -Received Zosyn during hospitalization -No plan to continue Antibiotics upon discharge as recommended by GI -Received IV fluids -Tolerated heart healthy diet -Needs follow up with GI and Oncology upon discharge (2) Abnormal urinalysis: Plan: -UA likely contaminant -Urine culture: Negative Mild Hyponatremia -Resolved Metabolic acidosis-Resolved Monitor Sodium levels (3) Borderline results on serologic testing for Lyme disease: Plan: -Lyme IgG positive, IgM negative -likely not acute infection -follow Western Blot (4) DVT prophylaxis: Plan: -SCDs for now Encourage to ambulate Admission and Anticipated Discharge Date Admission Date: February 03, 2021 Subjective Patient is seen and examined at bedside States having poor appetite Reports transient nausea overnight which currently resolved Discussed with GI and patient's family over the phone. Denies abdominal pain, chest pain, dyspnea, dizziness LFTs trending down Review of Systems Review of Systems: All systems reviewed & are unremarkable except as noted in Subjective Physical Exam Physical Exam: Physical Exam: Vitals signs as noted above General Appearance:Moderately built and nourished, no apparent distress Head: normocephalic, Atraumatic Eyes: normal inspection, EOMI, +Icterus Neck: supple, Trachea midline Respiratory/Chest: Normal breath sounds, CTA Cardiovascular: S1, S2, No murmur Abdomen/GI:Soft, Non tender, Bowel sounds present Extremities/Musculoskeletal:normal inspection, no edema Neurologic/Psych:AAOX3, grossly no focal neurological deficits Skin: normal color, warm, +Jaundiced Results & Data Results & Data ([facility]) Vital Signs (Past 12 Hours) Vital Signs Temp Pulse Resp BP Pulse Ox 02/06/21 07:13 36.7 C 68 16 146/80 H 95 Laboratory Results BMP 02/06/21 07:01 Sodium 138 Potassium 3.5 Chloride 105 Carbon Dioxide 26 BUN 15 Creatinine Glucose 108 H Calcium 8.3 L Liver Function 02/06/21 Range/Units 07:01 Total Bilirubin 24.9 H (0.2-1) mg/dl AST 72 H (15-37) U/L ALT 65 (12-78) U/L Alkaline Phosphatase 173 H (45-117) U/L Albumin 2.0 L (3.4-5.0) gm/dl
--- NOTE | 2021-02-06 11:37 | Discharge Summary ---
Date of Service February 06, 2021 Admission HPI Per Admitting Provider 71 year old female without significant past surgical or medical history who presents to the ED for evaluation of painless jaundice and poor appetite. Patient has not seen a medical provider in several years. She reports her symptoms have been ongoing for the past couple of weeks. Reports being on vacation with her family in [place] and was told that her skin was yellowing however did not want to go to the hospital. Patient reports a poor appetite however denies noticing any weight loss. No nausea, vomiting, abdominal pain. 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 No bright red blood per rectum or dark tarry stools. She denies chest pain shortness of breath. No other recent illnesses, fevers, chills. She denies lightheadedness, dizziness, diaphoresis, syncopal events. No urinary symptoms. In the ED, patient is found to have significant transaminitis with total bili 32.6, AST 97, ALT 92, alk phos 252. INR 1.5. CT ABD/pelvis shows moderate to severe intrahepatic biliary ductal dilatation with the suggestion of a subtle infiltrative underlying and obstructing mass lesion at the hepatic hilum. Patient was evaluated by GI and will be going for ERCP and stent placement this evening. Admission Exam Per Admitting Provider Physical Exam: Vitals signs as noted above General Appearance:Moderately built and nourished, no apparent distress Head: normocephalic, Atraumatic Eyes: normal inspection, EOMI, +Icterus Neck: supple, Trachea midline Respiratory/Chest: Normal breath sounds, CTA Cardiovascular: S1, S2, No murmur Abdomen/GI:Soft, Non tender, Bowel sounds present Extremities/Musculoskeletal:normal inspection, no edema Neurologic/Psych:AAOX3, grossly no focal neurological deficits Skin: normal color, warm, +Jaundiced Principal Diagnosis Cholangiocarcinoma Obstructive jaundice Hyponatremia Discharge Data Allergies Allergy/AdvReac Type Severity Reaction Status Date / Time No Known Allergies Allergy Verified 02/03/21 16:43 Consultations 02/03/21 16:43 ED Decision to Admit Stat 02/03/21 20:45 Consult Gastroenterology Routine Procedures Performed Operation Date: 02/03/21 10:20 Actual Procedures p Endoscopic Retrograde Cholangiopancreatography, Bile Duct Brushings, Bile Duct Stent Placement (Not Applicable) - Roger Connell MD Ordered Studies 02/03/21 13:34 CT abd pelvis IV con only Stat 02/03/21 13:35 CT angio chest PE protocol Stat 02/03/21 16:22 FL ERCP biliary ductal Stat Hospital Course (1) Painless jaundice: Obstructive painless jaundice Secondary to Cholangiocarcinoma -CT ABD/pelvis shows moderate to severe intrahepatic biliary ductal dilatation with the suggestion of a subtle infiltrative underlying and obstructing mass lesion at the hepatic hilum -S/P ERCP: Single severe biliary stricture was found in the hepatic ductal system. The stricture was malignant appearing. Cells for cytology obtained at the hepatic duct bifurcation. The stricture was dilated to allow stenting. One plastic biliary stent was placed in the right hepatic duct. -Cytology: Malignant cells present consistent with adenocarcinoma. -Hepatitis panel-hepatitis A, hepatitis B nonreactive -Monitor LFTs -Appreciate GI Input -Received Zosyn during hospitalization -No plan to continue Antibiotics upon discharge as recommended by GI -Received IV fluids -Tolerated heart healthy diet -Needs follow up with GI and Oncology upon discharge (2) Abnormal urinalysis: -UA likely contaminant -Urine culture: Negative Mild Hyponatremia -Resolved Metabolic acidosis-Resolved Monitor Sodium levels (3) Borderline results on serologic testing for Lyme disease: -Lyme IgG positive, IgM negative -likely not acute infection -follow Western Blot (4) DVT prophylaxis: -SCDs for now Encourage to ambulate Total Time Total Time Spent Total Time Spent (In Minutes): 44 minutes Discharge Plan Discharge Items Patient Disposition: Home - Self-Care Reason For Visit: PAINLESS JAUNDICE Discharge Diagnosis: Cholangiocarcinoma Obstructive jaundice Hyponatremia Activity: Per Instructions section Exercise/Sports: Wait until after follow-up appointment Non-emergency contact: Primary Care Provider, Consultant Rn and Oncologist Call non-emergency contact if: you have any medication questions, your symptoms worsen, your pain is concerning for you and you have a fever Follow-up/Referrals: Claribel Johnston DO [Outside Practitioners] - (Date & Time 02/09/2021 3:40 PM Provider Claribel Johnston DO Department 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 Roger Connell in 2-3 weeks as advised Follow up with your Oncologist for further management as required. Your serological work-up for Lyme's disease is pending at the time of discharge. Follow-up with your physician for results. Monitor your blood pressure regularly at home as advised. Discussed with the physician for possible need to be started on medications for high blood pressure if persistent. Seek immediate medical attention if your symptoms reoccur or worsen Please take all medications as instructed on discharge list below. Please call if you have any questions or problems. You can reach a [facility] hospitalist on duty at [facility] 24 hours a day by calling [phone] Pending Studies at Discharge: Yes Studies:: Serological work-up for Lyme's disease Stand-Alone Forms: My [facility] Booster Pack, Smoking Cessation Medications and DC Order Prescriptions: No Action No Known Home Medications RF: 0 Discharge Orders: Discharge Order (Routine); Ordered 02/06/21 Ordered By: Eric Kuo Admission Data Admit Date/Time: 02/03/21 17:38 Attending Provider: Eric Kuo Admit Provider: Eric Kuo Primary Care Provider: PCP,NO Other Providers: Eric Kuo ; Roger Connell Other Interventions: Discharge Summary Assessment (RN) Last Done: 02/06/21 11:43
[2021-02-06 17:31] LABS: 18KDIGG Band REACTIVE; 23KDIGG Band NON-REACTIVE; 23KDIGM Band NON-REACTIVE; 28KDIGG Band REACTIVE; 30KDIGG Band REACTIVE; 39KDIGG Band REACTIVE; 39KDIGM Band NON-REACTIVE; 41KDIGG Band REACTIVE; 41KDIGM Band NON-REACTIVE; 45KDIGG Band NON-REACTIVE; 58KDIGG Band REACTIVE; 66KDIGG Band REACTIVE; 93KDIGG Band REACTIVE; Lyme Antibodies, WB IgG POSITIVE (NEGATIVE); Lyme Antibodies, WB IgM NEGATIVE (NEGATIVE)
== END 2021-02-06 13:10 | disposition home or self-care (01) | DRG 436 ==
LOC: ED 12:21 → ASU 17:37 → 3N 17:38
DX: R17 Unspecified jaundice; C22.1 Intrahepatic bile duct carcinoma; E87.2 Acidosis; E87.1 Hypo-osmolality and hyponatremia